=== PATIENT | female | born 1995 | race Hispanic/Latino ===

== ENCOUNTER 2017-02-16 11:43 | Emergency (ER) | payer OTHER, SELFPAY ==
[2017-02-16 13:52] LABS: Anion Gap 10 mmol/L (-14-95); T. Carbon Dioxide 25.8 mmol/L (1.0-85.0); pH (Venous) 7.348 (7.35-7.45); vO2 Saturation-calc 73.2 % (0.0-100.0)
[2017-02-16 14:23] LABS: #Basophils 0.1 thou/uL (0.0-0.2); #Eosinphils 0.2 thou/uL (0.0-0.7); #Lymphocytes 3.1 thou/uL (1.20-3.40); #Monocytes 0.4 thou/uL (0.11-0.59); #Neutrophils 5.4 thou/uL (1.40-6.50); %Basophils 0.9 % (0.0-1.0); %Eosinophils 2.2 % (0.0-10.0); %Lymphocytes 34.1 % (28.0-48.0); Hematocrit 44.4 % (36.0-47.0); Mean Platelet Volume 7.7 fL (7.4-10.4); Red Blood Cell (RBC) Count 5.08 mill/uL (4.00-5.20); White Blood Cell (WBC) Count 9.2 thou/uL (4.8-10.8)
[2017-02-16 14:31] LABS: Bilirubin Negative (Negative); Blood, Urine Negative (Negative); Glucose, Urine (Dipstick) >=1000 mg/dL (Negative); Ketone, Urine > or equal to 80 mg/dL (Negative); Nitrite Negative (Negative); Protein, Urine (Dipstick) Negative (Neg-Trace); Urobilinogen 0.2 mg/dL (0.2-1.0)
[2017-02-16 14:35] LABS: ALT (SGPT) 43 U/L (8-55); AST (SGOT) 32 U/L (5-30); Alkaline Phosphatase 97 U/L (40-150); Anion Gap 18 mmol/L (10-20); BUN (Urea Nitrogen) 10 mg/dL (8.4-21.0); Bilirubin, Total 0.6 mg/dL (0.2-1.2); Calc. Creatinine Clearance 0 mL/min (70-130); Calcium 10.2 mg/dL (7.8-10.44); Carbon Dioxide 23 mmol/L (22-29); Chloride 99 mmol/L (98-107); Estimated GFR-MDRD Greater than 90; Globulin 4.1 g/dL (2.4-3.5); Lipase Less than 4 U/L (8-78); Protein, Total 8.8 g/dL (6.0-8.3)
== END 2017-02-16 15:24 | disposition home or self-care (01) ==
LOC: ERS 11:43
DX: R73.9 Hyperglycemia, unspecified (principal); G43.909 Migraine, unspecified, not intractable, without status migrainosus; E78.5 Hyperlipidemia, unspecified
CPT/HCPCS: 36416; 80053; 81003; 82010; 82330; 82803; 83690; 83930; 84703; 85025; 96360

== ENCOUNTER 2017-09-24 15:01 | Emergency (ER) | payer SELFPAY ==
[2017-09-24] MEDS ORDERED: diphenhydrAMINE 50 MG/ML VIAL ONE (16:36)
[2017-09-24] MEDS ORDERED: Metoclopramide HCl 10 MG/2 ML VIAL ONE (16:36)
[2017-09-24 16:45] LABS: #Basophils 0.1 thou/uL (0.0-0.2); #Lymphocytes 1.3 thou/uL (1.20-3.40); #Monocytes 0.4 thou/uL (0.11-0.59); #Neutrophils 8.6 thou/uL (1.40-6.50); %Basophils 0.6 % (0.0-1.0); %Eosinophils 0.1 % (0.0-10.0); %Lymphocytes 12.7 % (28.0-48.0); %Neutrophils 82.6 % (31.0-61.0); Hemoglobin 13.4 g/dL (12.0-16.0); Mean Corpuscular HGB CONC 33.9 g/dL (32.0-36.0); Mean Corpuscular Volume 85.5 fl (77.0-87.0); Mean Platelet Volume 6.3 fL (7.4-10.4); Platelet Count 297 thou/uL (130-400); RBC Distribution Width 11.5 % (11.5-14.5); Red Blood Cell (RBC) Count 4.62 mill/uL (4.00-5.20); White Blood Cell (WBC) Count 10.4 thou/uL (4.8-10.8)
[2017-09-24 16:54] LABS: Bilirubin Negative (Negative); Blood, Urine Negative (Negative); Clarity CLEAR (Clear); Glucose, Urine (Dipstick) Negative (Negative); Leukocyte Trace (Negative); Nitrite Negative (Negative); Protein, Urine (Dipstick) Negative (Neg-Trace); Specific Gravity, Urine 1.007 (1.002-1.036); Urobilinogen 0.2 mg/dL (0.2-1.0); pH, Urine 6.5 (5.0-9.0)
[2017-09-24 16:56] LABS: Bacteria/HPF None Seen HPF (None Seen); Hyaline Casts/LPF 0-3 HYALINE CAST LPF (0-3 Hyaline); Pathc Cast-AUWi Flag 0.29 (0-2.49); RBC/HPF 0-3 HPF (0-3); Squamous Epithelial 0-3 HPF (0-3); WBC/HPF 0-3 HPF (0-3)
[2017-09-24 17:06] LABS: ALT (SGPT) 28 U/L (8-55); AST (SGOT) 19 U/L (5-34); Albumin 4.5 g/dL (3.5-5.0); Alkaline Phosphatase 78 U/L (40-150); Anion Gap 13 mmol/L (10-20); BUN (Urea Nitrogen) 8 mg/dL (7.0-18.7); Bilirubin, Total 0.5 mg/dL (0.2-1.2); Calc. Creatinine Clearance 0 mL/min (70-130); Calcium 9.7 mg/dL (7.8-10.44); Carbon Dioxide 26 mmol/L (22-29); Chloride 96 mmol/L (98-107); Estimated GFR-MDRD Greater than 90; Globulin 3.5 g/dL (2.4-3.5); Glucose 191 mg/dL (70-105); Potassium 3.8 mmol/L (3.5-5.1); Sodium 131 mmol/L (136-145)
--- NOTE | 2017-09-24 17:26 | CT ---
CT BRAIN WITHOUT CONTRAST 09/24/17 HISTORY: Headache, migraines. FINDINGS: No evidence of infarct, hemorrhage, midline shift, or abnormal extra-axial fluid collections are seen . The ventricular size is normal and the basilar cisterns patent. The bony calvarium is intact. The v isualized paranasal sinuses and mastoid air cells are well aerated. There is a small amount of fluid in the left sphenoid sinus. IMPRESSION: No CT evidence of acute intracranial process. POS: OFF
[2017-09-24] MEDS ORDERED: Ibuprofen 800 MG TAB ONE (17:43)
[2017-09-24] MEDS ORDERED: Acetaminophen 500 MG TAB ONE (18:34)
== END 2017-09-24 20:25 | disposition home or self-care (01) ==
LOC: ERS 15:01
DX: B34.9 Viral infection, unspecified (principal); G43.909 Migraine, unspecified, not intractable, without status migrainosus; E78.5 Hyperlipidemia, unspecified; Z79.899 Other long term (current) drug therapy
CPT/HCPCS: 70450; 80053; 81003; 81015; 83605; 85025; 96365; 96375; J1200; J2765

== ENCOUNTER 2021-09-22 22:33 | Emergency (ER) | payer OTHER, SELFPAY | END 2021-09-22 23:57 | disposition home or self-care (01) | LOC: ERS 22:33 | DX: S63.502A Unspecified sprain of left wrist, initial encounter (principal); S70.01XA Contusion of right hip, initial encounter; V49.9XXA Car occupant (driver) (passenger) injured in unspecified traffic accident, initial encounter; E78.5 Hyperlipidemia, unspecified; E78.00 Pure hypercholesterolemia, unspecified; G43.909 Migraine, unspecified, not intractable, without status migrainosus; E10.9 Type 1 diabetes mellitus without complications ==

== ENCOUNTER 2021-10-01 10:58 | Outpatient (CLI) | payer OTHER | END 2021-10-01 10:59 | disposition home or self-care (01) | LOC: RAD-FRANK 10:58 | PROVIDERS: ATTEND Nurse Practitioner Family | DX: M25.511 Pain in right shoulder (principal); M54.2 Cervicalgia; M54.50 Low back pain, unspecified | CPT/HCPCS: 72040; 72100 ==

== ENCOUNTER 2023-05-25 12:40 | Emergency (ER) | payer SELFPAY | END 2023-05-25 14:44 | disposition home or self-care (01) | LOC: ERS 12:40 | DX: M70.51 Other bursitis of knee, right knee (principal); E10.9 Type 1 diabetes mellitus without complications | CPT/HCPCS: 99283 ==